=== PATIENT | male | born 1955 | race Caucasian/White ===

== ENCOUNTER 2016-09-26 07:25 | Day surgery (SDC) | payer OTHER ==
[~2016-09-26] VITALS: Ht 172.7 cm; Wt 94.6 kg
[2016-09-26 09:49] VITALS: Ht 172.7 cm; Wt 94.6 kg
[2016-09-26 09:54] VITALS: BP 120/75; PULSE 61; RESP 24
[2016-09-26] MEDS ORDERED: NO HOME MEDS (09:57)
[2016-09-26] MEDS ORDERED: MIDAZOLAM 1 MG/ML 2 ML INJ ONE ×2 (10:45)
[2016-09-26] MEDS ORDERED: FENTAnyl 50 MCG/ML VIAL ONE (10:46)
[2016-09-26 11:10] VITALS: BP 128/68; PULSE 50; RESP 22
--- NOTE | 2016-09-27 07:56 | GILP ---
DATE OF PROCEDURE: 09/26/2016 NAME OF PROCEDURE: Colonoscopy and polypectomy. PREOPERATIVE DIAGNOSIS: Patient presenting with history of no GI problems. This is a screening col onoscopy to rule out colon polyps. POSTOPERATIVE DIAGNOSES: 1. A 5 mm elongated polyp noted at mid ascending colon; polypectomy was performed. 2. Occasional diverticula noted in the right colon. 3. Occasional minimal internal hemorrhoids and minimal external hemorrhoids were noted. DESCRIPTION OF PROCEDURE: After informed written consent was obtained, the patient was asked to lie on the left lateral side. Intravenous anesthesia was given, which included 3 mg Versed and 50 mcg of fentanyl. When the patient became somnolent, the Olympus video colonoscope was introduced into t he rectum and scope was advanced all the way to the cecum. The entire colon appeared normal. Occas ional diverticula noted in the right colon. A 5 mm elongated polyp was noted in the mid ascending c olon. By using the hot snare, polypectomy was performed. Polyp was sent for histopathology. Occas ional diverticula were noted in the ascending colon. Endoscope at this time was withdrawn. On the way out, further evaluation was carried out. Minimal internal hemorrhoids and minimal external hemo rrhoids were noted and the procedure was terminated. PLAN: Recommend wait for the pathology report. Dictated By: JORGE ALBERTO HANCOCK/AMIRAH Conf#: [id number] DID#: [id number] CC: Jair;*EndCC*
== END 2016-09-26 12:00 | disposition home or self-care (01) ==
LOC: GIL 07:25
PROVIDERS: ATTEND Internal Medicine Gastroenterology
DX: Z12.11 Encounter for screening for malignant neoplasm of colon (principal); D12.2 Benign neoplasm of ascending colon; K64.4 Residual hemorrhoidal skin tags; K64.8 Other hemorrhoids; K57.90 Diverticulosis of intestine, part unspecified, without perforation or abscess without bleeding; E11.9 Type 2 diabetes mellitus without complications
CPT/HCPCS: 45380; 82962; 88305; J2250; J3010; Z7610